=== PATIENT | male | born 1970 | race Caucasian/White ===

== ENCOUNTER 2018-08-29 22:07 | Emergency (ER) | payer OTHER ==
[~2018-08-29] VITALS: Ht 172.7 cm; Wt 106.6 kg
[~2018-08-29 22:07] MED LIST: AMOXICILLIN 50500 MG PO; ANTIDEPRESSANT; BLOOD PRESSURE; BLOOD THINNER; DOXYCYCLINE 10100 M1 PO; NEXIUM40 MG; NEXIUM40 MG PO; NOHOMEMEDICATIONS; NORCO 5-325 TA1 EACH PO; VICODIN 5-5001 EACH PO
[2018-08-29] MEDS ORDERED: TRAMADOL 50 MG50 MG (22:28)
[2018-08-29] MEDS ORDERED: ELIQUIS5 MG (22:28)
[2018-08-29 22:55] LABS: ABSOLUTE BASOPHILS 0.1 thou/uL (0.0-0.2); ABSOLUTE EOSINOPHILS 0.2 thou/uL (0.0-0.7); ABSOLUTE LYMPHOCYTES 1.2 thou/uL (0.8-5.3); ABSOLUTE MONOCYTES 0.4 thou/uL (0.0-1.2); ABSOLUTE NEUTROPHILS 3.1 thou/uL (1.6-8.1); BASOPHILS 1.2 %; EOSINOPHILS 3.9 %; HEMATOCRIT 46.4 % (42.0-52.0); HEMOGLOBIN 15.5 gm/dL (14.0-18.0); LYMPHOCYTES 24.8 %; MCH 28.7 pg (26.0-34.0); MCHC 33.3 g/dL (28.0-37.0); MCV 86.2 fL (80.0-100.0); MONOCYTES 7.3 %; NUCLEATED RBCS 0 /100WBC; PLATELET COUNT* 188 thou/uL (150-400); POLYS 62.8 %; RBC 5.39 mil/uL (4.50-6.00); RDW-CV 14.2 % (10.5-14.5); WBC 4.9 thou/uL (4.0-11.0)
[2018-08-29 23:04] LABS: APTT 28.6 Seconds (25.0-31.3); PROTIME 10.7 Seconds (9.20-11.50)
[2018-08-29 23:10] LABS: ANION GAP 9 mmol/L (7-16); BUN 15 mg/dL (7-18); CALCIUM 8.8 mg/dL (8.5-10.1); CHLORIDE 105 mmol/L (98-107); CO2 30 mmol/L (21-32); CREATININE 1.1 mg/dL (0.6-1.3); GLUCOSE 83 mg/dL (70-99); POTASSIUM 3.9 mmol/L (3.5-5.1); SODIUM 144 mmol/L (136-145); TROPONIN-I LEVEL <0.06 ng/mL (<0.06)
[2018-08-29 23:16] LABS: ALBUMIN 3.9 g/dL (3.4-5.0); ALKALINE PHOSPHATASE 99 U/L (46-116); NT-PRO BRAIN NAT PEPTIDE 17 pg/mL (<300); SGOT 15 U/L (15-37); SGPT 25 U/L (30-65); TOTAL BILIRUBIN 0.3 mg/dL (<0.1-1.0); TOTAL PROTEIN 7.4 g/dL (6.4-8.2)
[2018-08-29] MEDS ORDERED: VENTOLIN HFA 1818 GM INH (23:54)
[2018-08-30] MEDS ORDERED: ACETAMINOPHEN-1 EAC1 PO (00:03)
[2018-08-30 00:10] VITALS: BP 122/92
--- NOTE | 2018-08-30 17:40 | EKG ---
[place] [address] ELECTROCARDIOGRAM REPORT Name: WHITNEY FARIAS Room: [facility]#: [id number] Admission: 08/29/18 Attend Phys: Discharge: 08/30/18 Date of : 66 Report #: [id number] THIS REPORT FOR: //name// [facility] ED Test Date: 2018-08-29 Test Time: 22:37:47 Pat Name: WHITNEY FARIAS Department: Room: Gender: M Inventory Worker: Elder RANDALL : 1970 Requested By: Erma Robbins Order Number: [id number] MD: Chun Small Measurements Intervals [place] Rate: 89 P: 56 IL: 156 QRS: 39 QRSD: 103 T: -9 QT: 350 QTc: 426 Interpretive Statements Sinus rhythm Possible inferior infarct, age indeterminate Baseline wander in lead(s) II,III,aVR,aVF,V1,V2,V3,V5,V6 Compared to ECG 09/25/2013 00:41:03 Myocardial infarct finding now present Electronically Signed On 08-30-2018 17:40:30 CDT by Chun Small [email or web address] <ELECTRONICALLY SIGNED> By: Chun Small MD, FACC 08/30/18 1740 36 36 Chun Small MD, FAC /EPI
== END 2018-08-30 00:10 | disposition home or self-care (01) ==
LOC: M.ERS 22:07
PROVIDERS: Nurse Practitioner Family
DX: G89.29 Other chronic pain (principal); M79.605 Pain in left leg; R06.00 Dyspnea, unspecified; I10 Essential (primary) hypertension; K21.9 Gastro-esophageal reflux disease without esophagitis; F17.210 Nicotine dependence, cigarettes, uncomplicated

== ENCOUNTER → 2019-12-13 | Outpatient (CLI) | payer OTHER ==
[~2019-12-13] MED LIST changes: +ACETAMINOPHEN-1 EAC1 PO; +ELIQUIS5 MG; +TRAMADOL 50 MG50 MG; +VENTOLIN HFA 1818 GM INH
== END ==
LOC: M.RAD 15:41
PROVIDERS: ATTEND Nurse Practitioner Family
DX: K59.00 Constipation, unspecified (principal); R14.0 Abdominal distension (gaseous)